=== PATIENT | male | born 1980 ===

== ENCOUNTER 2017-09-25 10:13 | Observation (INO) | payer OTHER ==
--- NOTE | 2017-09-25 10:49 | ED PDOC ---
HPI: Psych/Substance Abuse Time Seen by Provider: 09/25/17 10:15 Chief Complaint (Nursing): Psychiatric Evaluation History Per: Patient Additional Complaint(s): As per pt's mother 2 weeks ago pt.'s Haldol 5mg TID and Benztropine TID were changed to BID and since then pt has been acting bizarre and unruly. They attempted to increase the dosing to TID this week without any change in his behavior. States today pt. refused to take his medications prompting them to call 911. Pt. offers no complaints. States "I am doing well. I don't need any medicine." Denies SI/HI, hallucinations. Past Medical History Reviewed: Historical Data, Nursing Documentation, Vital Signs - Medical History PMH: Diabetes, Hypercholesterolemia, Schizophrenia - Surgical History Surgical History: No Surg Hx - Family History Family History: States: No Known Family Hx - Home Medications Home Medications: Ambulatory Orders Medication Instructions Recorded Benztropine [Cogentin] 1 tab PO BID 09/25/17 Clonazepam [Klonopin] 1 tab PO TID 09/25/17 Divalproex [Depakote DR] 1 tab PO TID 09/25/17 Fenofibrate [Triglide] 1 tab PO DAILY 09/25/17 Glimepiride [amaRYL] 1 tab PO BID 09/25/17 Haloperidol [Haldol] 1 tab PO TID 09/25/17 SITagliptin [Januvia] 1 tab PO DAILY 09/25/17 metFORMIN [glucOPHAGE] 1 tab PO BID 09/25/17 - Allergies Allergies/Adverse Reactions: Allergies Allergy/AdvReac Type Severity Reaction Status Date / Time No Known Allergies Allergy Verified 09/25/17 10:26 Review of Systems ROS Statement: Except As Marked, All Systems Reviewed And Found Negative Physical Exam - Reviewed Nursing Documentation Reviewed: Yes Vital Signs Reviewed: Yes - Physical Exam Appears: Positive for: Well, Non-toxic, No Acute Distress Head Exam: Positive for: ATRAUMATIC, NORMAL INSPECTION, NORMOCEPHALIC Skin: Positive for: Normal Color, Warm. Negative for: Rash Eye Exam: Positive for: EOMI, Normal appearance, PERRL ENT: Positive for: Normal ENT Inspection Neck: Positive for: Normal, Painless ROM Cardiovascular/Chest: Positive for: Regular Rate, Rhythm Respiratory: Positive for: CNT, Normal Breath Sounds Gastrointestinal/Abdominal: Positive for: Normal Exam, Soft. Negative for: Tenderness Back: Positive for: Normal Inspection Extremity: Positive for: Normal ROM Neurologic/Psych: Positive for: Alert, Oriented, Mood/Affect (cooperative, seems preoccupied). Negative for: Aphasia, Facial Droop - Laboratory Results Result Diagrams: 09/25/17 11:39 09/25/17 11:39 - ECG ECG: Positive for: Interpreted By Me ECG Rhythm: Positive for: Sinus Tachycardia. Negative for: ST/T Changes Rate: 131 - Radiology X-Ray: Interpreted by Me (CXR) X-Ray Interpretation: No Acute Disease - Progress ED Course And Treament: Labs ordered. Pt. placed on 1:1. 1345 Aeronautical Engineer: SR at [address]-T wave changes. Pt. alert and awake. No distress, calm, cooperative. Denies hx of DVT or PE, previous abdominal surgeries, abd pain, SOB, chest pain, fever. No abd tenderness. Negative Duvall's sign. LFTs and bilirubin elevated. D-dimer, additional NS bolus, abd US ordered. Case d/w Dr. Piedra who agrees with care. 1430 Pt. had meal. Calm, cooperative. compliance monitor: SR at [address]-T wave changes. 1600 Pt. returned from US agitated and attempted to leave ED. Geodon 20mg IM, benadryl 50mg IM ordered. 1616 compliance monitor: SR at [address]-T wave changes. Sleeping comfortably. Case d/w Dr. Piedra who recommends 23 hr tele observation. Case d/w Dr. Penn, hospitalist, and arrangements made for 23 hr observation. Pt will be placed on 23 hour observation due to unexplained tachycardia. [address] became agitated in CT. Haldol 5mg IM, ativan 2mg IM given. Disposition - Clinical Impression Clinical Impression: Sinus tachycardia, Schizophrenia - Patient ED Disposition Is Patient to be Admitted: Yes - Disposition Disposition Time: 16:16 Condition: STABLE - Pt Status Changed To: Hospital Disposition Of: Observation
[2017-09-25 11:50] LABS: BASO % 0.4 % (0.0-2.0); HEMOGLOBIN 14.2 g/dL (12.0-18.0); LYMPH # 2.7 K/uL (1.0-4.3); LYMPH % 29.4 % (20.0-40.0); MEAN CELL VOLUME 87.7 fl (80.0-94.0); MEAN CORPUSCULAR HEMOGLOBIN 29.7 pg (27.0-31.0); MEAN CORPUSCULAR HGB CONC 33.9 g/dL (33.0-37.0); MEAN PLATELET VOLUME 7.5 fl (7.2-11.7); MONO # 1.2 K/uL (0.0-0.8); MONO % 13.1 % (0.0-10.0); NEUT # 5.3 K/uL (1.8-7.0); NEUT % 57.1 % (50.0-75.0); NRBC % 0.1 % (0.0-0.0); RBC 4.77 Mil/uL (4.40-5.90); RED CELL DISTRIBUTION WIDTH 13.6 % (11.5-14.5); WHITE BLOOD COUNT 9.3 K/uL (4.8-10.8)
[2017-09-25 11:57] LABS: ALB/GLOB RATIO 1.3 (1.0-2.1); ALBUMIN 4.4 g/dL (3.5-5.0); ALT/SGPT 80 U/L (21-72); AST/SGOT 84 U/L (17-59); BLOOD UREA NITROGEN 13 mg/dl (9-20); GFR AFRICAN-AMERICAN > 60; GFR NON-AFRICAN AMERICAN > 60
[2017-09-25 11:59] LABS: CALCIUM 9.1 mg/dL (8.4-10.2)
[2017-09-25] MEDS ORDERED: Sodium Chloride 0.9% 1,000 ML IV STA ×2 (12:26→14:01)
[2017-09-25 14:55] LABS: SQUAMOUS EPITHIAL < 1 /hpf (0-5); URINE BACTERIA RARE (<OCC); URINE BILIRUBIN NEGATIVE (NEGATIVE); URINE BLOOD NEGATIVE (NEGATIVE); URINE CLARITY CLOUDY (Clear); URINE COLOR YELLOW (YELLOW); URINE GLUCOSE (UA) >=500 mg/dL (Normal); URINE LEUKOCYTE ESTERASE NEG Leu/uL (Negative); URINE PROTEIN 30 mg/dL (NEGATIVE); URINE UROBILINOGEN 0.2-1.0 mg/dL (0.2-1.0)
[2017-09-25 15:16] LABS: BARBITURATES, UR NEGATIVE (NEGATIVE); BENZODIAZEPINES, UR NEGATIVE (NEGATIVE); OPIATES, UR NEGATIVE (NEGATIVE); PHENCYCLIDINE, UR NEGATIVE (NEGATIVE)
[2017-09-25] MEDS ORDERED: DiphenhydrAMINE 50 mg/ml Inj IVP STA (16:16)
[2017-09-25] MEDS ORDERED: DiphenhydrAMINE 50 mg/ml Inj ONE (16:19)
[2017-09-25] MEDS ORDERED: DiphenhydrAMINE 50 mg/ml Inj IM STA (16:23)
--- NOTE | 2017-09-25 16:40 | US ---
HISTORY: elevated LFTs and bili COMPARISON: None. TECHNIQUE: Sonographic evaluation of the abdomen. FINDINGS: Examination is compromised due to excessive restaurant motion artifact in this patient who was not able to suspend respirations. Body habitus is also limited. LIVER: Measures 18.1 cm. Diffusely increased echogenicity of the liver parenchyma. No mass. No intrahepatic bile duct dilatation. GALLBLADDER: Not identified secondary to complete contraction or possible prior surgery. The patient ate prior to the examination which is contrary to our standard pre ultrasound preparatory instructions. COMMON BILE DUCT: Not identified. PANCREAS: Head and neck of the pancreas are obscured by overlying bowel gas with remainder unremarkable. Tech RIGHT KIDNEY: Measures 12.6cm. Normal echogenicity. No calculus, mass, or hydronephrosis. LEFT KIDNEY: Measures 12.4cm. Normal echogenicity. No calculus, mass, or hydronephrosis. SPLEEN: Normal in size and contour. No mass. AORTA: No aneurysmal dilatation. IVC: Unremarkable. OTHER FINDINGS: None. IMPRESSION: Hepatic steatosis. Gallbladder and common bile ducts are not identified due to body habitus and inability of patient to suspend respirations. Patient is also not NPO resulting in possible complete contraction of the gallbladder if present. Clinically correlate further. Partial imaging of the pancreas. Remainder the examination is unremarkable.
--- NOTE | 2017-09-25 17:53 | CP.PCM.HP ---
History of Present Illness - History of Present Illness History of Present Illness: CC: psychosis This is a 37 yo male with pmh of schizophrenia, type 2 DM, and hypercholesterolemia, who was sent to the ED due to acute psychosis. The patient recently had a reduction in his Haldol and Bentropine and has since been acting more unruly and bizarre at home. Today the patient became acutely psychotic. In the ED, the patient had to be placed in 4 point restraints and was given Benadryl, Ativan, and Haldol with only minimal relief. The patient was noted to be persistently tachycardic in the 130's despite the medication. The patient is being placed on observation on telemetry due to persistent sinus tachycardia as he is not being cleared for inpatient psych admission. Patient is acutely psychotic and unable to give a ROS. Present on Admission - Present on Admission Any Indicators Present on Admission: No History of DVT/PE: No Review of Systems - Review of Systems Systems not reviewed;Unavailable: Uncooperative, Psychotic Past Patient History - Infectious Disease Hx of Infectious Diseases: None - Past Medical History & Family History Past Medical History?: Yes Past Family History: Reviewed and not pertinent - Past Social History Smoking Status: Never Smoked Alcohol: None Drugs: Denies - CARDIAC Hx Hypercholesterolemia: Yes - PULMONARY Hx Tuberculosis: No - NEUROLOGICAL HX Cerebrovascular Accident: No Hx Seizures: No - ENDOCRINE/METABOLIC Hx Endocrine Disorders: Yes Hx Diabetes Mellitus Type 2: Yes - HEMATOLOGICAL/ONCOLOGICAL Hx Cancer: No Hx Human Immunodeficiency Virus (HIV): No - GENITOURINARY/GYNECOLOGICAL Hx Sexually Transmitted Disorders: No - PSYCHIATRIC Hx Schizophrenia: Yes - SURGICAL HISTORY Hx Surgeries: No - ANESTHESIA Hx Anesthesia: No Meds Allergies/Adverse Reactions: Allergies Allergy/AdvReac Type Severity Reaction Status Date / Time No Known Allergies Allergy Verified 09/25/17 10:26 Physical Exam - Additional Findings Additional findings: Physical exam: Constitutional- uncooperative but awake, alert Head- NCAT, PERRL Eye- PERRL, EOMI ENT- normal exam, MMM. Neck- normal inspection, supple, no JVD Respiratory- CTAB, no wheezes rales rhonchi Cardiovascular- tachycardic, regular rhythm, +S1, +S2 no MRG GI/Abdominal- normal bowel sounds, soft, no mass, no hsm Skin- warm, dry Extremities Exam- normal capillary refill, normal inspection Neurological Exam- alert, awake, oriented Psych- acutely psychotic, unable to answer questions, agitated Results - Vital Signs Recent Vital Signs: Last Vital Signs Temp 98.5 F 09/25/17 16:37 Pulse 131 H 09/25/17 16:37 Resp 26 H 09/25/17 16:37 BP 132/99 H 09/25/17 16:37 Pulse Ox 97 09/25/17 16:37 - Labs Result Diagrams: 09/25/17 11:39 09/25/17 11:39 Labs: Laboratory Results - last 24 hr 09/25/17 09/25/17 09/25/17 11:01 11:39 11:39 WBC 9.3 RBC 4.77 Hgb 14.2 Hct 41.8 MCV 87.7 MCH 29.7 MCHC 33.9 RDW 13.6 Plt Count 317 MPV 7.5 Neut % (Auto) 57.1 Lymph % (Auto) 29.4 Jennings % (Auto) 13.1 H Eos % (Auto) 0.0 Baso % (Auto) 0.4 Neut # (Auto) 5.3 Lymph # (Auto) 2.7 [place] # (Auto) 1.2 H Eos # (Auto) 0.0 Baso # (Auto) 0.0 D-Dimer, Quantitative Sodium 138 Potassium 3.9 Chloride 101 Carbon Dioxide 17 L Anion Gap 24 H BUN 13 Creatinine 0.8 Est GFR ( Amer) > 60 Est GFR (Non-Af Amer) > 60 POC Glucose (mg/dL) 179 H Random Glucose 191 H Calcium 9.1 Total Bilirubin 1.7 H AST 84 H ALT 80 H Alkaline Phosphatase 70 Total Protein 7.7 Albumin 4.4 Globulin 3.3 Albumin/Globulin Ratio 1.3 TSH 3rd Generation Urine Color Urine Clarity Urine pH Ur Specific [place] Urine Protein Urine Glucose (UA) Urine Ketones Urine Blood Urine Nitrate Urine Bilirubin Urine Urobilinogen Ur Leukocyte Esterase Urine RBC (Auto) Urine Microscopic WBC Ur Squamous Epith Cells Urine Bacteria Urine Opiates Screen Urine Methadone Screen Ur Barbiturates Screen Valproic Acid Ur Phencyclidine Scrn Ur Amphetamines Screen U Benzodiazepines Scrn U Oth Cocaine Metabols U Cannabinoids Screen Alcohol, Quantitative < 10 09/25/17 09/25/17 09/25/17 11:39 12:37 14:20 WBC RBC Hgb Hct MCV MCH MCHC RDW Plt Count MPV Neut % (Auto) Lymph % (Auto) [place] % (Auto) Eos % (Auto) Baso % (Auto) Neut # (Auto) Lymph # (Auto) [place] # (Auto) Eos # (Auto) Baso # (Auto) D-Dimer, Quantitative Sodium Potassium Chloride Carbon Dioxide Anion Gap BUN Creatinine Est GFR ( Amer) Est GFR (Non-Af Amer) POC Glucose (mg/dL) Random Glucose Calcium Total Bilirubin AST ALT Alkaline Phosphatase Total Protein Albumin Globulin Albumin/Globulin Ratio TSH 3rd Generation 1.77 Urine Color Urine Clarity Urine pH Ur Specific [place] Urine Protein Urine Glucose (UA) Urine Ketones Urine Blood Urine Nitrate Urine Bilirubin Urine Urobilinogen Ur Leukocyte Esterase Urine RBC (Auto) Urine Microscopic WBC Ur Squamous Epith Cells Urine Bacteria Urine Opiates Screen Negative Urine Methadone Screen Negative Ur Barbiturates Screen Negative Valproic Acid < 10.0 L Ur Phencyclidine Scrn Negative Ur Amphetamines Screen Negative U Benzodiazepines Scrn Negative U Oth Cocaine Metabols Negative U Cannabinoids Screen Negative Alcohol, Quantitative 09/25/17 09/25/17 14:20 14:30 WBC RBC Hgb Hct MCV MCH MCHC RDW Plt Count MPV Neut % (Auto) Lymph % (Auto) [place] % (Auto) Eos % (Auto) Baso % (Auto) Neut # (Auto) Lymph # (Auto) [place] # (Auto) Eos # (Auto) Baso # (Auto) D-Dimer, Quantitative 78 Sodium Potassium Chloride Carbon Dioxide Anion Gap BUN Creatinine Est GFR ( Amer) Est GFR (Non-Af Amer) POC Glucose (mg/dL) Random Glucose Calcium Total Bilirubin AST ALT Alkaline Phosphatase Total Protein Albumin Globulin Albumin/Globulin Ratio TSH 3rd Generation Urine Color Yellow Urine Clarity Cloudy Urine pH 5.0 Ur Specific [place] 1.027 Urine Protein 30 Urine Glucose (UA) >=500 Urine Ketones 20 Urine Blood Negative Urine Nitrate Negative Urine Bilirubin Negative Urine Urobilinogen 0.2-1.0 Ur Leukocyte Esterase Neg Urine RBC (Auto) 7 H Urine Microscopic WBC 3 Ur Squamous Epith Cells < 1 Urine Bacteria Rare Urine Opiates Screen Urine Methadone Screen Ur Barbiturates Screen Valproic Acid Ur Phencyclidine Scrn Ur Amphetamines Screen U Benzodiazepines Scrn U Oth Cocaine Metabols U Cannabinoids Screen Alcohol, Quantitative - EKG Data EKG Interpreted by: ER Physician Rate: Tachycardia Assessment & Plan - Assessment and Plan (Free Text) Plan: ASSESSMENT/PLAN This is a 37 yo male with pmh of schizophrenia, type 2 DM, and hypercholesterolemia, who was sent to the ED due to acute psychosis, now with persistent acute sinus tachycardia 1) Persistent sinus tachycardia due to anxiety and acute psychosis - Place on telemetry/observation - Continue Ativan and Haldol PRN - Continue monitoring for now, if pulse increases or becomes hemodynamically unstable will give beta elsi 2) Type 2 DM - Tricor 145 mg po daily - Accuchek and regular insulin sliding scale - Glipizide 10 mg po BID - Metformin 1000 mg po BID 3) Hypercholesterolemia - Tricor 4) Hepatic steatosis with mild transaminase elevation - chronic 5) DVT prophylaxis - SCDs
[2017-09-25] MEDS ORDERED: Midazolam 2 MG/2 ML VIAL IM ONE (18:21)
--- NOTE | 2017-09-25 18:32 | RAD ---
HISTORY: clearance COMPARISON: No prior. FINDINGS: LUNGS: No active pulmonary disease. PLEURA: No significant pleural effusion identified, no pneumothorax apparent. CARDIOVASCULAR: Cardiomegaly versus technical magnification. No pulmonary vascular congestion. OSSEOUS STRUCTURES: No significant abnormalities. VISUALIZED UPPER ABDOMEN: Mild left hemidiaphragm elevation noted. OTHER FINDINGS: None. IMPRESSION: Cardiomegaly versus technical magnification. Elevated left hemidiaphragm. No infiltrates or pleural effusions bilaterally.
[2017-09-25] MEDS: GlipiZIDE 10 mg SR Tab PO SCH (19:36)
[2017-09-26 05:37] LABS: MEAN CELL VOLUME 87.1 fl (80.0-94.0); MEAN CORPUSCULAR HEMOGLOBIN 29.4 pg (27.0-31.0); MEAN CORPUSCULAR HGB CONC 33.8 g/dL (33.0-37.0); RBC 4.42 Mil/uL (4.40-5.90); RED CELL DISTRIBUTION WIDTH 14.1 % (11.5-14.5); WHITE BLOOD COUNT 11.1 K/uL (4.8-10.8)
[2017-09-26 06:21] LABS: BLOOD UREA NITROGEN 8 mg/dl (9-20); CALCIUM 8.7 mg/dL (8.4-10.2); GFR AFRICAN-AMERICAN > 60; GFR NON-AFRICAN AMERICAN > 60
[2017-09-26] MEDS: Insulin Regular 100 units/ml SC SCH ×3 (06:44→16:39)
[2017-09-26] MEDS ORDERED: Potassium Chloride 20 mEq ER Tab PO ONE (08:27)
[2017-09-26] MEDS ORDERED: Enoxaparin 40 mg Syringe SC SCH (09:00)
[2017-09-26] MEDS: Divalproex 250 mg DR(BID formulation) PO SCH ×2 (09:36→10:11)
[2017-09-26] MEDS: GlipiZIDE 10 mg SR Tab PO SCH ×3 (09:36→16:40)
--- NOTE | 2017-09-26 11:35 | CP.PCM.CON ---
History of Present Illness - History of Present Illness History of Present Illness: pt is 37 ys old male with history of schizophrenia, referred to ER due to acute psychosis and disorganized behavior, as per mother pt has been diagnosed with schizophrenia 9 years ago, currently following up with Dr Nava, has been compliant about three weeks ago the medications has been reduced by psychiatrist since then pt started decompensating, presenting with disorganized behavior, internally preoccupied pt also has been agitated angry irritable pt in ER and om medical floor had to be placed in restraints due to violence and agitation On evaluation pt angry irritable and verbally threatening towards the undersigned, internally preoccupied and uncooperative Past Patient History - Infectious Disease Hx of Infectious Diseases: None - Past Medical History & Family History Past Medical History?: Yes - Past Social History Smoking Status: Never Smoked - CARDIAC Hx Hypercholesterolemia: Yes - PULMONARY Hx Tuberculosis: No - NEUROLOGICAL HX Cerebrovascular Accident: No Hx Seizures: No - RENAL Hx Chronic Kidney Disease: No - ENDOCRINE/METABOLIC Hx Endocrine Disorders: Yes Hx Diabetes Mellitus Type 2: Yes - HEMATOLOGICAL/ONCOLOGICAL Hx Cancer: No Hx Human Immunodeficiency Virus (HIV): No - MUSCULOSKELETAL/RHEUMATOLOGICAL Hx Falls: No - GENITOURINARY/GYNECOLOGICAL Hx Sexually Transmitted Disorders: No - PSYCHIATRIC Hx Substance Use: No - SURGICAL HISTORY Hx Surgeries: No - ANESTHESIA Hx Anesthesia: No Meds Allergies/Adverse Reactions: Allergies Allergy/AdvReac Type Severity Reaction Status Date / Time No Known Allergies Allergy Verified 09/25/17 10:26 - Medications Medications: Current Medications Benztropine Mesylate (Cogentin) 1 mg PO BID [facility] Last Admin: 09/26/17 10:11 Dose: 1 mg Clonazepam (Klonopin) 1 mg PO TID [facility] Last Admin: 09/26/17 10:14 Dose: 1 mg Divalproex Sodium (Depakote Dr(*Bid*)) 500 mg PO TID [facility] Fenofibrate (Tricor) 145 mg PO DAILY [facility] Last Admin: 09/26/17 10:12 Dose: 145 mg Glipizide (Glucotrol Xl) 10 mg PO BID [facility] Last Admin: 09/26/17 10:11 Dose: 10 mg Haloperidol (Haldol) 1 mg PO TID [facility] Last Admin: 09/26/17 10:11 Dose: 1 mg Haloperidol Lactate (Haldol) 1 mg IM Q6 PRN PRN Reason: Agitation Insulin Human Regular (Humulin R) 0 units SC ACCU-CHECK MAN PRN Reason: Protocol Last Admin: 09/26/17 06:44 Dose: Not Given Lorazepam (Ativan) 2 mg IVP Q6 PRN PRN Reason: Agitation Last Admin: 09/25/17 18:39 Dose: 2 mg Sitagliptin Phosphate (Januvia) 100 mg PO DAILY [facility] Last Admin: 09/26/17 10:12 Dose: 100 mg Physical Exam - Psychiatric Exam Additional comments: pt seen in bed, uncopperative, angry irritable, verbally threatening requesting to leave, internally preoccupied, Results - Vital Signs Recent Vital Signs: Last Vital Signs Temp 98.7 F 09/26/17 08:28 Pulse 122 H 09/26/17 08:28 Resp 18 09/26/17 08:28 BP 139/87 09/26/17 08:28 Pulse Ox 96 09/26/17 08:28 - Labs Result Diagrams: 09/26/17 05:15 09/26/17 05:15 Labs: Laboratory Results - last 24 hr 09/25/17 09/25/17 09/25/17 11:01 11:39 11:39 WBC 9.3 RBC 4.77 Hgb 14.2 Hct 41.8 MCV 87.7 MCH 29.7 MCHC 33.9 RDW 13.6 Plt Count 317 MPV 7.5 Neut % (Auto) 57.1 Lymph % (Auto) 29.4 Bee % (Auto) 13.1 H Eos % (Auto) 0.0 Baso % (Auto) 0.4 Neut # (Auto) 5.3 Lymph # (Auto) 2.7 Bee # (Auto) 1.2 H Eos # (Auto) 0.0 Baso # (Auto) 0.0 D-Dimer, Quantitative Sodium 138 Potassium 3.9 Chloride 101 Carbon Dioxide 17 L Anion Gap 24 H BUN 13 Creatinine 0.8 Est GFR ( Amer) > 60 Est GFR (Non-Af Amer) > 60 POC Glucose (mg/dL) 179 H Random Glucose 191 H Calcium 9.1 Total Bilirubin 1.7 H AST 84 H ALT 80 H Alkaline Phosphatase 70 Total Protein 7.7 Albumin 4.4 Globulin 3.3 Albumin/Globulin Ratio 1.3 TSH 3rd Generation Urine Color Urine Clarity Urine pH Ur Specific [place] Urine Protein Urine Glucose (UA) Urine Ketones Urine Blood Urine Nitrate Urine Bilirubin Urine Urobilinogen Ur Leukocyte Esterase Urine RBC (Auto) Urine Microscopic WBC Ur Squamous Epith Cells Urine Bacteria Urine Opiates Screen Urine Methadone Screen Ur Barbiturates Screen Valproic Acid Ur Phencyclidine Scrn Ur Amphetamines Screen U Benzodiazepines Scrn U Oth Cocaine Metabols U Cannabinoids Screen Alcohol, Quantitative < 10 09/25/17 09/25/17 09/25/17 11:39 12:37 14:20 WBC RBC Hgb Hct MCV MCH MCHC RDW Plt Count MPV Neut % (Auto) Lymph % (Auto) Bee % (Auto) Eos % (Auto) Baso % (Auto) Neut # (Auto) Lymph # (Auto) Bee # (Auto) Eos # (Auto) Baso # (Auto) D-Dimer, Quantitative Sodium Potassium Chloride Carbon Dioxide Anion Gap BUN Creatinine Est GFR ( Amer) Est GFR (Non-Af Amer) POC Glucose (mg/dL) Random Glucose Calcium Total Bilirubin AST ALT Alkaline Phosphatase Total Protein Albumin Globulin Albumin/Globulin Ratio TSH 3rd Generation 1.77 Urine Color Urine Clarity Urine pH Ur Specific [place] Urine Protein Urine Glucose (UA) Urine Ketones Urine Blood Urine Nitrate Urine Bilirubin Urine Urobilinogen Ur Leukocyte Esterase Urine RBC (Auto) Urine Microscopic WBC Ur Squamous Epith Cells Urine Bacteria Urine Opiates Screen Negative Urine Methadone Screen Negative Ur Barbiturates Screen Negative Valproic Acid < 10.0 L Ur Phencyclidine Scrn Negative Ur Amphetamines Screen Negative U Benzodiazepines Scrn Negative U Oth Cocaine Metabols Negative U Cannabinoids Screen Negative Alcohol, Quantitative 09/25/17 09/25/17 09/25/17 14:20 14:30 18:46 WBC RBC Hgb Hct MCV MCH MCHC RDW Plt Count MPV Neut % (Auto) Lymph % (Auto) Bee % (Auto) Eos % (Auto) Baso % (Auto) Neut # (Auto) Lymph # (Auto) Bee # (Auto) Eos # (Auto) Baso # (Auto) D-Dimer, Quantitative 78 Sodium Potassium Chloride Carbon Dioxide Anion Gap BUN Creatinine Est GFR ( Amer) Est GFR (Non-Af Amer) POC Glucose (mg/dL) 178 H Random Glucose Calcium Total Bilirubin AST ALT Alkaline Phosphatase Total Protein Albumin Globulin Albumin/Globulin Ratio TSH 3rd Generation Urine Color Yellow Urine Clarity Cloudy Urine pH 5.0 Ur Specific [place] 1.027 Urine Protein 30 Urine Glucose (UA) >=500 Urine Ketones 20 Urine Blood Negative Urine Nitrate Negative Urine Bilirubin Negative Urine Urobilinogen 0.2-1.0 Ur Leukocyte Esterase Neg Urine RBC (Auto) 7 H Urine Microscopic WBC 3 Ur Squamous Epith Cells < 1 Urine Bacteria Rare Urine Opiates Screen Urine Methadone Screen Ur Barbiturates Screen Valproic Acid Ur Phencyclidine Scrn Ur Amphetamines Screen U Benzodiazepines Scrn U Oth Cocaine Metabols U Cannabinoids Screen Alcohol, Quantitative 09/26/17 09/26/17 09/26/17 05:15 05:15 05:52 WBC 11.1 H RBC 4.42 Hgb 13.0 Hct 38.5 MCV 87.1 MCH 29.4 MCHC 33.8 RDW 14.1 Plt Count 296 MPV Neut % (Auto) Lymph % (Auto) Bee % (Auto) Eos % (Auto) Baso % (Auto) Neut # (Auto) Lymph # (Auto) Bee # (Auto) Eos # (Auto) Baso # (Auto) D-Dimer, Quantitative Sodium 141 Potassium 3.3 L Chloride 105 Carbon Dioxide 20 L Anion Gap 19 BUN 8 L Creatinine 0.7 L Est GFR ( Amer) > 60 Est GFR (Non-Af Amer) > 60 POC Glucose (mg/dL) 146 H Random Glucose 165 H Calcium 8.7 Total Bilirubin AST ALT Alkaline Phosphatase Total Protein Albumin Globulin Albumin/Globulin Ratio TSH 3rd Generation 1.57 Urine Color Urine Clarity Urine pH Ur Specific [place] Urine Protein Urine Glucose (UA) Urine Ketones Urine Blood Urine Nitrate Urine Bilirubin Urine Urobilinogen Ur Leukocyte Esterase Urine RBC (Auto) Urine Microscopic WBC Ur Squamous Epith Cells Urine Bacteria Urine Opiates Screen Urine Methadone Screen Ur Barbiturates Screen Valproic Acid Ur Phencyclidine Scrn Ur Amphetamines Screen U Benzodiazepines Scrn U Oth Cocaine Metabols U Cannabinoids Screen Alcohol, Quantitative Assessment & Plan - Assessment and Plan (Free Text) Assessment: schizophrenia Plan: pt at current mental status danger to self and others, pt to be [place] [facility] [place] clearence continue with haldol 5mg tid cogenitn 1 mg tid depakote increased to 500mg tid
--- NOTE | 2017-09-26 11:39 | CARD ---
APPROVED REPORT EKG Measurement Heart [id number] SC 120P [id number] <Conclusion> Sinus tachycardia Otherwise normal ECG
[2017-09-26] MEDS: Divalproex 500 mg DR(BID formulation) PO SCH ×2 (12:40→16:39)
--- NOTE | 2017-09-26 12:48 | CP.PCM.PN ---
Subjective - Date & Time of Evaluation Date of Evaluation: 09/26/17 Time of Evaluation: 08:00 - Subjective Subjective: Pt seen and examined On 4 point leather restraint as pt is very agitated , violent - for safety Last night had to be restrained by several security guards due to violent behavior. Had long talk with pt - who started to listen and became more calm Denies any cough, no abd pain, no other sxs. States he was diagnosed to have Schizophrenia. He is oriented t person and place and follows simple commands . he said m his Psychiatrist is Dr Nava and PMD is Dr Lund. Will continue to monitor pt closely and d/c restraint if he is no longer a safety threat Pt ate all his breakfast Objective - Vital Signs/Intake and Output Vital Signs (last 24 hours): Temp Pulse Resp BP Pulse Ox 98.3 F 120 H 18 149/99 H 97 09/26/17 12:44 09/26/17 12:44 09/26/17 12:44 09/26/17 12:44 09/26/17 12:44 - Medications Medications: Current Medications Benztropine Mesylate (Cogentin) 1 mg PO BID [facility] Last Admin: 09/26/17 10:11 Dose: 1 mg Clonazepam (Klonopin) 1 mg PO TID [facility] Last Admin: 09/26/17 10:14 Dose: 1 mg Divalproex Sodium (Depakote Dr(*Bid*)) 500 mg PO TID [facility] Last Admin: 09/26/17 12:40 Dose: 500 mg Fenofibrate (Tricor) 145 mg PO DAILY [facility] Last Admin: 09/26/17 10:12 Dose: 145 mg Glipizide (Glucotrol Xl) 10 mg PO BID [facility] Last Admin: 09/26/17 10:11 Dose: 10 mg Haloperidol (Haldol) 1 mg PO TID [facility] Last Admin: 09/26/17 12:40 Dose: 1 mg Haloperidol Lactate (Haldol) 1 mg IM Q6 PRN PRN Reason: Agitation Insulin Human Regular (Humulin R) 0 units SC ACCU-CHECK [facility] PRN Reason: Protocol Last Admin: 09/26/17 12:41 Dose: Not Given Lorazepam (Ativan) 2 mg IVP Q6 PRN PRN Reason: Agitation Last Admin: 09/25/17 18:39 Dose: 2 mg Sitagliptin Phosphate (Januvia) 100 mg PO DAILY [facility] Last Admin: 09/26/17 10:12 Dose: 100 mg - Labs Labs: 09/26/17 05:15 09/26/17 05:15 - Constitutional Appears: Other (agitated, anxious) - Head Exam Head Exam: NORMAL INSPECTION, NORMOCEPHALIC - Eye Exam Eye Exam: EOMI, Normal appearance Pupil Exam: NORMAL ACCOMODATION - ENT Exam ENT Exam: Mucous Membranes Moist, Normal External Ear Exam - Neck Exam Neck Exam: Full ROM. absent: Meningismus - Respiratory Exam Respiratory Exam: NORMAL BREATHING PATTERN. absent: Respiratory Distress - Cardiovascular Exam Cardiovascular Exam: REGULAR RHYTHM, +S1, +S2 - GI/Abdominal Exam GI & Abdominal Exam: Soft, Normal Bowel Sounds. absent: Tenderness - Extremities Exam Extremities Exam: Full ROM, Normal Capillary Refill. absent: Calf Tenderness - Back Exam Back Exam: Full ROM. absent: CVA tenderness (L), CVA tenderness (R) - Neurological Exam Neurological Exam: Alert, Awake, CN II-XII Intact, Oriented x3 Neuro motor strength exam: Left Upper Extremity: 5, Right Upper Extremity: 5, Left Lower Extremity: 5, Right Lower Extremity: 5 - Psychiatric Exam Psychiatric exam: Agitated, Anxious - Skin Skin Exam: Dry, Normal Color, Warm Assessment and Plan (1) Sinus tachycardia Status: Acute (2) Abnormal LFTs Status: Acute (3) Schizophrenia Status: Chronic (4) DM type 2 (diabetes mellitus, type 2) Status: Chronic (5) Class 1 obesity with body mass index (BMI) of 33.0 to 33.9 in adult Status: Chronic (6) HTN (hypertension) Status: Chronic - Assessment and Plan (Free Text) Assessment: This is a 37 yo male with pmh of Schizophrenia, type 2 DM, and hypercholesterolemia, who was sent to the ED due to acute psychosis. Pt's medication dose were recently decreased by his Psychiatrist and since then, the patient has had worsening psychosis and is very agitated . In ED , noted to have Sinus Tachycardia. 1) Sinus tachycardia likely due to anxiety and acute psychosis - Pt is in telemetry/observation - Continue Ativan and Haldol PRN - Continue monitoring for now - since BP is also elevated , will start low dose Toprol 25 mg - Pt is asymptomatic -TSH normal - tachycardia likely due to agitation and also meds (Haldola nd Benztropine) , when pt was sleeping, his HR was in the 90s- 105s 2. Schizophrenia - pt is very agitated, violent , threat to safety of self and other - placed on 4 point leather restraint - will follow up closely, 1:1 - Psych consulted- discussed case with Dr Damon- rec to increase Depakote dose , increase Haldol to 5 mg TID -also [place] [facility] [place] 3) Type 2 DM - Accuchek and regular insulin sliding scale - Glipizide 10 mg po BID - Metformin 1000 mg po BID 4) Hypercholesterolemia - Tricor 5) Hepatic steatosis with mild transaminase elevation - chronic - cont Tricor 6) DVT prophylaxis - SCDs
[2017-09-26] MEDS: Metoprolol Succinate 25 mg XL Tab PO SCH (13:46)
[2017-09-26 14:50] LABS: ALB/GLOB RATIO 1.3 (1.0-2.1); ALBUMIN 3.9 g/dL (3.5-5.0); BILIRUBIN,DIRECT 0.5 mg/ml (0.0-0.4)
[2017-09-27] MEDS ORDERED: Pneumococcal 23-Valent Vaccine IM ONE (08:09)
[2017-09-27] MEDS: GlipiZIDE 10 mg SR Tab PO SCH (09:12)
[2017-09-27] MEDS: Divalproex 500 mg DR(BID formulation) PO SCH ×2 (09:12→13:39)
[2017-09-27] MEDS: Metoprolol Succinate 25 mg XL Tab PO SCH (09:13)
[2017-09-27] MEDS: Insulin Regular 100 units/ml SC SCH ×2 (09:14→13:40)
[2017-09-27 10:35] LABS: ALB/GLOB RATIO 1.2 (1.0-2.1); ALBUMIN 3.9 g/dL (3.5-5.0); ALT/SGPT 89 U/L (21-72); AST/SGOT 245 U/L (17-59); BLOOD UREA NITROGEN 5 mg/dl (9-20); CALCIUM 8.5 mg/dL (8.4-10.2); GFR AFRICAN-AMERICAN > 60; GFR NON-AFRICAN AMERICAN > 60
[2017-09-27 13:38] VITALS: RESP 18
--- NOTE | 2017-09-27 14:31 | CP.PCM.DIS ---
Provider - Provider Date of Admission: 09/25/17 17:30 Attending physician: Luis Penn DO Primary care physician: Dr Lund Consults: Psych: Dr Damon Time Spent in preparation of Discharge (in minutes): 40 Diagnosis - Discharge Diagnosis (1) Sinus tachycardia Status: Acute (2) Abnormal LFTs Status: Acute (3) Schizophrenia Status: Chronic (4) DM type 2 (diabetes mellitus, type 2) Status: Chronic (5) Class 1 obesity with body mass index (BMI) of 33.0 to 33.9 in adult Status: Chronic (6) HTN (hypertension) Status: Chronic Hospital Course - Lab Results Lab Results: Most Recent Lab Values WBC 11.1 K/uL (4.8-10.8) H 09/26/17 05:15 RBC 4.42 Mil/uL (4.40-5.90) 09/26/17 05:15 Hgb 13.0 g/dL (12.0-18.0) 09/26/17 05:15 Hct 38.5 % (35.0-51.0) 09/26/17 05:15 MCV 87.1 fl (80.0-94.0) 09/26/17 05:15 MCH 29.4 pg (27.0-31.0) 09/26/17 05:15 MCHC 33.8 g/dL (33.0-37.0) 09/26/17 05:15 RDW 14.1 % (11.5-14.5) 09/26/17 05:15 Plt Count 296 K/uL (130-400) 09/26/17 05:15 MPV 7.5 fl (7.2-11.7) 09/25/17 11:39 Neut % (Auto) 57.1 % (50.0-75.0) 09/25/17 11:39 Lymph % (Auto) 29.4 % (20.0-40.0) 09/25/17 11:39 [place] % (Auto) 13.1 % (0.0-10.0) H 09/25/17 11:39 Eos % (Auto) 0.0 % (0.0-4.0) 09/25/17 11:39 Baso % (Auto) 0.4 % (0.0-2.0) 09/25/17 11:39 Neut # (Auto) 5.3 K/uL (1.8-7.0) 09/25/17 11:39 Lymph # (Auto) 2.7 K/uL (1.0-4.3) 09/25/17 11:39 [place] # (Auto) 1.2 K/uL (0.0-0.8) H 09/25/17 11:39 Eos # (Auto) 0.0 K/uL (0.0-0.7) 09/25/17 11:39 Baso # (Auto) 0.0 K/uL (0.0-0.2) 09/25/17 11:39 D-Dimer, Quantitative 78 ng/mlDDU (0-230) 09/25/17 14:30 Sodium 136 mmol/l (132-148) 09/27/17 09:40 Potassium 3.7 MMOL/L (3.6-5.0) 09/27/17 09:40 Chloride 100 mmol/L (98-107) 09/27/17 09:40 Carbon Dioxide 28 mmol/L (22-30) 09/27/17 09:40 Anion Gap 12 (10-20) 09/27/17 09:40 BUN 5 mg/dl (9-20) L 09/27/17 09:40 Creatinine 0.6 mg/dl (0.8-1.5) L 09/27/17 09:40 Est GFR ( Amer) > 60 09/27/17 09:40 Est GFR (Non-Af Amer) > 60 09/27/17 09:40 POC Glucose (mg/dL) 150 mg/dL (65-110) H 09/27/17 12:20 Random Glucose 232 mg/dL (75-110) H 09/27/17 09:40 Calcium 8.5 mg/dL (8.4-10.2) 09/27/17 09:40 Total Bilirubin 2.0 mg/dl (0.2-1.3) H 09/27/17 09:40 Direct Bilirubin 0.5 mg/ml (0.0-0.4) H 09/26/17 13:34 AST 245 U/L (17-59) H 09/27/17 09:40 ALT 89 U/L (21-72) H 09/27/17 09:40 Alkaline Phosphatase 55 U/L (38-126) 09/27/17 09:40 Total Protein 7.1 G/DL (6.3-8.2) 09/27/17 09:40 Albumin 3.9 g/dL (3.5-5.0) 09/27/17 09:40 Globulin 3.2 gm/dL (2.2-3.9) 09/27/17 09:40 Albumin/Globulin Ratio 1.2 (1.0-2.1) 09/27/17 09:40 TSH 3rd Generation 1.57 mIU/ML (0.46-4.68) 09/26/17 05:15 Urine Color Yellow (YELLOW) 09/25/17 14:20 Urine Clarity Cloudy (Clear) 09/25/17 14:20 Urine pH 5.0 (5.0-8.0) 09/25/17 14:20 Ur Specific [place] 1.027 (1.003-1.030) 09/25/17 14:20 Urine Protein 30 mg/dL (NEGATIVE) 09/25/17 14:20 Urine Glucose (UA) >=500 mg/dL (Normal) 09/25/17 14:20 Urine Ketones 20 mg/dL (NEGATIVE) 09/25/17 14:20 Urine Blood Negative (NEGATIVE) 09/25/17 14:20 Urine Nitrate Negative (NEGATIVE) 09/25/17 14:20 Urine Bilirubin Negative (NEGATIVE) 09/25/17 14:20 Urine Urobilinogen 0.2-1.0 mg/dL (0.2-1.0) 09/25/17 14:20 Ur Leukocyte Esterase Neg [place]/uL (Negative) 09/25/17 14:20 Urine RBC (Auto) 7 /hpf (0-3) H 09/25/17 14:20 Urine Microscopic WBC 3 /hpf (0-5) 09/25/17 14:20 Ur Squamous Epith Cells < 1 /hpf (0-5) 09/25/17 14:20 Urine Bacteria Rare (<OCC) 09/25/17 14:20 Urine Opiates Screen Negative (NEGATIVE) 09/25/17 14:20 Urine Methadone Screen Negative (NEGATIVE) 09/25/17 14:20 Ur Barbiturates Screen Negative (NEGATIVE) 09/25/17 14:20 Valproic Acid < 10.0 ug/mL (50.0-100.0) L 09/25/17 11:39 Ur Phencyclidine Scrn Negative (NEGATIVE) 09/25/17 14:20 Ur Amphetamines Screen Negative (NEGATIVE) 09/25/17 14:20 U Benzodiazepines Scrn Negative (NEGATIVE) 09/25/17 14:20 U Oth Cocaine Metabols Negative (NEGATIVE) 09/25/17 14:20 U Cannabinoids Screen Negative (NEGATIVE) 09/25/17 14:20 Alcohol, Quantitative < 10 mg/dl (0-10) 09/25/17 11:39 - Hospital Course Hospital Course: This is a 37 yo male with pmh of Schizophrenia, type 2 DM, and hypercholesterolemia, who was sent to the ED due to acute psychosis. Pt's medication dose were recently decreased by his Psychiatrist and since then, the patient has had worsening psychosis and is very agitated . In ED , noted to have Sinus Tachycardia, so pt was observed in Telemetry. Psychiatry consulted. 1) Sinus tachycardia likely due to anxiety and acute psychosis - Pt was observed in Telemetry- no abn rhythm - Ativan prn given - since BP is also elevated , started low dose Toprol 25 mg - Pt is asymptomatic, tachycardia improved -TSH normal, no SOB , no CP, Oxygen saturation normal - CXR : no infiltrates - tachycardia likely due to agitation and also meds (Haldol and Benztropine) , when pt was sleeping, his HR was in the 90-105 2. Schizophrenia with acute Psychosis - pt was very agitated, violent , threat to safety of self and other - placed on 4 point leather restraint ans 1:1 - Psych consulted- discussed case with Dr Damon- rec to increase Depakote dose , increase Haldol to 5 mg TID [place] [facility] [place] - [place]'s condition improved [place] [facility] [place] to [place] pt and deemed pt not candidate for Involuntary admission - Pt refused to sign for admission to our Inpatient Psych - Dr Damon came to re- eval pt and cleared pt for d/c home - accdg to pt's mother , pt is at his baseline mental status 3) Type 2 DM - Accuchek and regular insulin sliding scale - cont Glipizide 10 mg po BID -d/c Metformin 4) Hypercholesterolemia - cont Tricor 5) Hepatic steatosis with mild transaminase elevation - chronic - cont Tricor, d/c Metformin - Abd Sono: no heapatic steatosis 6) DVT prophylaxis - SCDs Discharge Exam - Head Exam Head Exam: ATRAUMATIC, NORMAL INSPECTION, NORMOCEPHALIC - Eye Exam Eye Exam: EOMI, Normal appearance, PERRL Pupil Exam: NORMAL ACCOMODATION - ENT Exam ENT Exam: Mucous Membranes Moist, Normal External Ear Exam - Neck Exam Neck exam: Full Rom - Respiratory Exam Respiratory Exam: NORMAL BREATHING PATTERN. absent: Respiratory Distress - Cardiovascular Exam Cardiovascular Exam: REGULAR RHYTHM, +S1, +S2 - GI/Abdominal Exam GI & Abdominal Exam: Normal Bowel Sounds, Soft. absent: Tenderness - Extremities Exam Extremities exam: full ROM, normal capillary refill, pedal pulses present - Back Exam Back exam: FULL ROM. absent: CVA tenderness (L), CVA tenderness (R) - Neurological Exam Neurological exam: Alert, CN II-XII Intact, Oriented x3, Reflexes Normal - Skin Skin Exam: Dry, Intact, Normal Color, Warm Discharge Plan - Discharge Medications Prescriptions: Divalproex [Deppool BOSWELL(*BID*)] 500 mg PO TID #90 tcp Metoprolol Succinate XL [Toprol XL] 25 mg PO DAILY #30 tab - Follow Up Plan Condition: IMPROVED Disposition: HOME/ ROUTINE Instructions: Sinus Tachycardia (DC), Schizophrenia (DC) Additional Instructions: ff up with Dr Elijah de oliveira appt with Dr Lund in 1 wk Referrals: Ej Lund MD [Family Provider] -
--- NOTE | 2017-09-27 14:46 | CP.PCM.CON ---
History of Present Illness - History of Present Illness History of Present Illness: follow up consult pt evaluated , more cooperative, speech more productive compliant with medications alert and awake oriented to person and place, denied any current command hallucinations, denied suicidal or homicidal ideation Past Patient History - Infectious Disease Hx of Infectious Diseases: None - Past Medical History & Family History Past Medical History?: Yes - Past Social History Smoking Status: Never Smoked - CARDIAC Hx Hypercholesterolemia: Yes - PULMONARY Hx Tuberculosis: No - NEUROLOGICAL HX Cerebrovascular Accident: No Hx Seizures: No - RENAL Hx Chronic Kidney Disease: No - ENDOCRINE/METABOLIC Hx Endocrine Disorders: Yes Hx Diabetes Mellitus Type 2: Yes - HEMATOLOGICAL/ONCOLOGICAL Hx Cancer: No Hx Human Immunodeficiency Virus (HIV): No - MUSCULOSKELETAL/RHEUMATOLOGICAL Hx Falls: No - GENITOURINARY/GYNECOLOGICAL Hx Sexually Transmitted Disorders: No - PSYCHIATRIC Hx Substance Use: No - SURGICAL HISTORY Hx Surgeries: No - ANESTHESIA Hx Anesthesia: No Meds Home Medications: Home Medication List Medication Instructions Recorded Confirmed Type Divalproex [Asif SMYTH(*BID*)] 500 mg PO TID tcp 09/27/17 Rx Divalproex [Depakote (*BID*)] 500 mg PO TID #90 tcp 09/27/17 Rx GlipiZIDE SR [Glucotrol XL] 10 mg PO BID tab 09/27/17 Rx Haloperidol [Haldol] 5 mg PO TID tab 09/27/17 Rx Insulin Human Regular [HumuLIN R] 0 units SC ACCU-CHECK ml 09/27/17 Rx LORazepam [Ativan] 2 mg IVP Q6 PRN vial 09/27/17 Rx Metoprolol Succinate XL [Toprol XL] 25 mg PO DAILY tab 09/27/17 Rx Metoprolol Succinate XL [Toprol XL] 25 mg PO DAILY #30 tab 09/27/17 Rx Allergies/Adverse Reactions: Allergies Allergy/AdvReac Type Severity Reaction Status Date / Time No Known Allergies Allergy Verified 09/25/17 10:26 - Medications Medications: Current Medications Benztropine Mesylate (Cogentin) 1 mg PO BID [facility] Last Admin: 09/27/17 09:12 Dose: 1 mg Clonazepam (Klonopin) 1 mg PO TID [facility] Last Admin: 09/27/17 13:42 Dose: 1 mg Divalproex Sodium (Asif Smyth(*Bid*)) 500 mg PO TID [facility] Last Admin: 09/27/17 13:39 Dose: 500 mg Fenofibrate (Tricor) 145 mg PO DAILY [facility] Last Admin: 09/27/17 09:12 Dose: 145 mg Glipizide (Glucotrol Xl) 10 mg PO BID [facility] Last Admin: 09/27/17 09:12 Dose: 10 mg Haloperidol (Haldol) 5 mg PO TID [facility] Last Admin: 09/27/17 13:39 Dose: 5 mg Haloperidol Lactate (Haldol) 1 mg IM Q6 PRN PRN Reason: Agitation Insulin Human Regular (Humulin R) 0 units SC ACCU-CHECK [facility] PRN Reason: Protocol Last Admin: 09/27/17 13:40 Dose: Not Given Lorazepam (Ativan) 2 mg IVP Q6 PRN PRN Reason: Agitation Last Admin: 09/25/17 18:39 Dose: 2 mg Metoprolol Succinate (Toprol Xl) 25 mg PO DAILY [facility] Last Admin: 09/27/17 09:13 Dose: 25 mg Sitagliptin Phosphate (Januvia) 100 mg PO DAILY [facility] Last Admin: 09/27/17 09:12 Dose: 100 mg Results - Vital Signs Recent Vital Signs: Last Vital Signs Temp 98.4 F 09/27/17 13:00 Pulse 108 H 09/27/17 13:00 Resp 18 09/27/17 13:00 BP 136/89 09/27/17 13:00 Pulse Ox 95 09/27/17 13:00 - Labs Result Diagrams: 09/26/17 05:15 09/27/17 09:40 Labs: Laboratory Results - last 24 hr 09/26/17 09/26/17 09/26/17 13:34 16:11 21:43 Sodium Potassium Chloride Carbon Dioxide Anion Gap BUN Creatinine Est GFR ( Amer) Est GFR (Non-Af Amer) POC Glucose (mg/dL) 104 102 Random Glucose Calcium Total Bilirubin 1.9 H Direct Bilirubin 0.5 H AST 236 H D ALT 78 H Alkaline Phosphatase 69 Total Protein 6.7 Albumin 3.9 Globulin 2.9 Albumin/Globulin Ratio 1.3 09/27/17 09/27/17 09/27/17 06:23 09:40 12:20 Sodium 136 Potassium 3.7 Chloride 100 Carbon Dioxide 28 Anion Gap 12 BUN 5 L Creatinine 0.6 L Est GFR ( Amer) > 60 Est GFR (Non-Af Amer) > 60 POC Glucose (mg/dL) 131 H 150 H Random Glucose 232 H Calcium 8.5 Total Bilirubin 2.0 H Direct Bilirubin AST 245 H ALT 89 H Alkaline Phosphatase 55 Total Protein 7.1 Albumin 3.9 Globulin 3.2 Albumin/Globulin Ratio 1.2 Assessment & Plan - Assessment and Plan (Free Text) Assessment: schizophrenia paranoid type continuous Plan: pt was screened by [facility] [place] for involuntary admission and was declined, pt refusing admission to psychiatry inpatient for stabilization at current mental status pt is calm and cooperative compliant with medications, denied any current suicidal or homicidal ideation, denied command hallucinations , mother feels comfortable to take patient home , follow up with private psychiatrist Dr Nava pt at current mental status psychiatricaly cleared for discharge on medical clearance
[2017-09-27 16:17] VITALS: BP 129/88; PULSE 115; TEMP 99.8; O2SAT 96
== END 2017-09-27 17:25 | disposition home or self-care (01) ==
LOC: H.ER 10:13 → H.ERHOLD 17:30 → H.TEL 23:45
PROVIDERS: ADMIT Internal Medicine; ATTEND Internal Medicine
DX: F20.0 Paranoid schizophrenia (principal); I10 Essential (primary) hypertension; K76.0 Fatty (change of) liver, not elsewhere classified; E66.9 Obesity, unspecified; Z68.33 Body mass index [BMI] 33.0-33.9, adult; Z78.1 Physical restraint status; Z79.84 Long term (current) use of oral hypoglycemic drugs; Z79.899 Other long term (current) drug therapy; R00.0 Tachycardia, unspecified; R45.1 Restlessness and agitation; R45.6 Violent behavior; R74.0 Nonspecific elevation of levels of transaminase and lactic acid dehydrogenase [LDH]; R94.5 Abnormal results of liver function studies; E11.9 Type 2 diabetes mellitus without complications; E78.00 Pure hypercholesterolemia, unspecified
CPT/HCPCS: 36415; 71045; 76700; 80048; 80053; 80076; 80164; 80320; 80324; 80345; 80346; 80349; 80353; 80358; 80361; 81003; 82948; 83992; 84443; 85025; 85027; 85378; 93005; 96361; 96372; 96374; 96375; 99285; G0378; J1200; J1630; J2060; J3486; J7030